=== PATIENT | female | born 1970 | race Caucasian/White ===

== ENCOUNTER 2020-06-24 13:04 | Emergency (ER) | payer MEDICAID ==
[~2020-06-24] VITALS: Ht 162.6 cm; Wt 52.3 kg
[~2020-06-24 13:04] MED LIST: NO HOME MEDS; VAL5T PO
--- NOTE | 2020-06-24 14:18 | NUR ---
Back from CT via wheelchair.
[2020-06-24] MEDS ORDERED: HYDROcodone/acetaminophen 5mg/325mg tablet PO ONE (15:05)
[2020-06-24] MEDS ORDERED: ketorolac trometh. 30mg/ml inj. IM ONE (15:05)
[2020-06-24] MEDS ORDERED: ondansetron 4mg rapidly disintigrating tab PO ONE (15:05)
--- NOTE | 2020-06-24 15:28 | NUR ---
to ct scan via wheelchair in stable condition accompanied by tech
[2020-06-24 15:55] VITALS: BP 132/91
[2020-06-24] MEDS ORDERED: CYCL-1 PO (16:23)
== END 2020-06-24 16:37 | disposition home or self-care (01) ==
LOC: ER 13:04
DX: S06.0X0A Concussion without loss of consciousness, initial encounter (principal); S16.1XXA Strain of muscle, fascia and tendon at neck level, initial encounter; S86.812A Strain of other muscle(s) and tendon(s) at lower leg level, left leg, initial encounter; S86.911A Strain of unspecified muscle(s) and tendon(s) at lower leg level, right leg, initial encounter; R51.9 Headache, unspecified; M25.562 Pain in left knee; M25.531 Pain in right wrist; R07.0 Pain in throat; H53.8 Other visual disturbances; R42 Dizziness and giddiness; Z79.899 Other long term (current) drug therapy; W01.0XXA Fall on same level from slipping, tripping and stumbling without subsequent striking against object, initial encounter; Y93.89 Activity, other specified; Y92.89 Other specified places as the place of occurrence of the external cause; Y99.8 Other external cause status
CPT/HCPCS: 70450; 70486; 71250; 72125; 72128; 72131; 73564; 96372; 99285; J1885